=== PATIENT | male | born 1960 | race Caucasian/White ===

== ENCOUNTER 2019-03-10 07:34 | Day surgery (SDC) | payer BC ==
[2019-03-10] MEDS ORDERED: LIDOCAINE 2% MDV (20MG/ML) 20ML VIAL IV ONE (07:35)
[2019-03-10] MEDS ORDERED: PROPOFOL 10 MG/ML VIAL IV ONE (07:35)
--- NOTE | 2019-03-11 08:10 | Operative Note ---
OPERATION: COLONOSCOPY with cold forceps polypectomy. PREOPERATIVE DIAGNOSIS: Personal history of adenomatous polyp. POSTOPERATIVE DIAGNOSIS: Fair prep and rectal polyp. PROCEDURE: After informed consent was obtained from the patient, he was placed in the left lateral decubitus position in the endoscopy suite, sedated and monitored by the department of anesthesia. Digital rectal exam was unremarkable. A well-lubricated [id number] colonoscope was inserted into the rectum and advanced to the cecum. Preparation quality was fair. The cecum, cecal bulb, ileocecal valve, appendiceal orifice, ascending colon, transverse colon, descending colon, and sigmoid colon were free of inflammatory changes, mass lesions, or polyps. There was a 3-4 mm rectal polyp removed in piecemeal fashion with a cold forceps. The remainder of the rectum in forward and J-turn views was unremarkable. The endoscope was straightened, the rectal ampulla deflated, and the endoscope was removed. RECOMMENDATIONS: I would suggest the patient undergo repeat exam in 3 years. He can resume his medications and diet. As always, thank you for allowing me to participate in the healthcare of your patients. ALESSANDRA
== END 2019-03-10 09:05 | disposition home or self-care (01) ==
LOC: HOP 07:34
PROVIDERS: ATTEND Internal Medicine Gastroenterology
DX: Z12.11 Encounter for screening for malignant neoplasm of colon (principal); Z86.010 Personal history of colon polyps; K62.1 Rectal polyp